=== PATIENT | male | born 1960 | race Native Hawaiian/Other Pacific Islander ===

== ENCOUNTER 2019-09-29 19:50 | Emergency (ER) | payer OTHER ==
[~2019-09-29] VITALS: Ht 165.1 cm; Wt 63.5 kg
[2019-09-29 20:30] LABS: PLATELET COUNT 284 K/uL (142-355)
[2019-09-29 20:40] LABS: POTASSIUM 3.6 mmol/L (3.6-5.2)
[2019-09-29 20:55] VITALS: BP 136/68; TEMP 97.8
[2019-09-29] MEDS ORDERED: AMMONIUM LAC12 % EX (21:30)
[2019-09-29] MEDS ORDERED: AMLODIPINE BESYLATE PO (21:30)
[2019-09-29] MEDS ORDERED: LIPITOR80 MG PO (21:31)
[2019-09-29] MEDS ORDERED: BAYER ASA325 M1 PO (21:31)
[2019-09-29] MEDS ORDERED: CLOP75TA2 PO (21:32)
[2019-09-29] MEDS ORDERED: B121000 MCG PO (21:32)
[2019-09-29] MEDS ORDERED: DIVA125C PO (21:33)
[2019-09-29] MEDS ORDERED: MULTIVITAMIN AD1 TAB PO (21:33)
[2019-09-29] MEDS ORDERED: IPRAAER INH (21:34)
[2019-09-29] MEDS ORDERED: FISH OIL1 C10 PO (21:34)
[2019-09-29] MEDS ORDERED: KP FOLIC ACID1 MG PO (21:34)
[2019-09-29] MEDS ORDERED: D31000 UNIT PO (21:35)
[2019-09-29] MEDS ORDERED: ESCI10TA PO (21:35)
== END 2019-09-29 20:55 | disposition other institution (70) ==
LOC: ED 19:50
PROVIDERS: Emergency Medicine
DX: R45.851 Suicidal ideations (principal); H65.191 Other acute nonsuppurative otitis media, right ear; I69.354 Hemiplegia and hemiparesis following cerebral infarction affecting left non-dominant side; I44.4 Left anterior fascicular block; F17.210 Nicotine dependence, cigarettes, uncomplicated; Z04.6 Encounter for general psychiatric examination, requested by authority
CPT/HCPCS: 36415; 80053; 85027; 93005; 99283